=== PATIENT | male | born 1985 | race Two or more races ===

== ENCOUNTER 2018-01-16 14:40 | Emergency (ER) | payer MEDICAID, OTHER ==
[~2018-01-16] VITALS: Ht 182.9 cm; Wt 100.0 kg
[2018-01-16 16:18] LABS: APPEARANCE,URINE CLEAR (CLEAR); BILIRUBIN,URINE NEGATIVE (NEGATIVE); GLUCOSE, URINE (UA) NEGATIVE (NEGATIVE); KETONES,URINE NEGATIVE (NEGATIVE); LEUKOCYTE ESTERASE ,URINE SMALL (NEGATIVE); NITRATE,URINE NEGATIVE (NEGATIVE); OCCULT BLOOD,URINE NEGATIVE (NEGATIVE); PROTEIN,URINE TRACE (NEGATIVE)
[2018-01-16 16:31] VITALS: BP 131/71
[2018-01-16 16:38] LABS: BACTERIA,URINE Rare /HPF (None Seen); RBC,URINE None Seen /HPF (0-2); SQUAMOUS EPITHELIAL CELL,UR Rare /LPF (None Seen)
== END 2018-01-16 17:38 | disposition home or self-care (01) ==
LOC: EMS 14:43
DX: N39.0 Urinary tract infection, site not specified (principal)
CPT/HCPCS: 87086; 87491; 87591; 99284

== ENCOUNTER 2019-03-15 09:30 | Emergency (ER) | payer OTHER ==
[2019-03-15 10:31] LABS: INFLUENZA TYPE A NEGATIVE FOR TYPE A (NEGATIVE); INFLUENZA TYPE B NEGATIVE FOR TYPE B (NEGATIVE)
[2019-03-15 10:58] VITALS: BP 120/53
== END 2019-03-15 10:59 | disposition home or self-care (01) ==
LOC: EMS 09:31
DX: J06.9 Acute upper respiratory infection, unspecified (principal)
CPT/HCPCS: 87804

== ENCOUNTER 2019-07-18 09:01 | Emergency (ER) | payer OTHER ==
[~2019-07-18] VITALS: Ht 175.3 cm; Wt 65.9 kg
[2019-07-18] MEDS ORDERED: AZITHROMYCIN 250 MG TABLET PO ONE (11:15)
[2019-07-18] MEDS ORDERED: LIDOCAINE/PF 1% 2 ML VIAL IM ONE (11:15)
[2019-07-18] MEDS ORDERED: CefTRIAXone SODIUM 1 GM/VIAL IM ONE (11:15)
[2019-07-18 11:49] VITALS: BP 135/87
== END 2019-07-18 11:59 | disposition home or self-care (01) ==
LOC: EMS 09:03
DX: N48.29 Other inflammatory disorders of penis (principal); F12.90 Cannabis use, unspecified, uncomplicated; Z98.890 Other specified postprocedural states
CPT/HCPCS: 96372; 99283; J0696; J3490

== ENCOUNTER → 2019-08-29 | Outpatient (CLI) | payer OTHER | END | disposition home or self-care (01) | LOC: PUC 12:50 | DX: R30.0 Dysuria (principal) | CPT/HCPCS: 87491; 87591 ==